=== PATIENT | female | born 1985 | race African-American/Black ===

== ENCOUNTER 2018-09-19 15:17 | Emergency (ER) | payer SELFPAY ==
[~2018-09-19] VITALS: Ht 185.4 cm; Wt 113.6 kg
[2018-09-19 15:17] VITALS: BP 124/65
[2018-09-19 16:06] LABS: URINE PREG TEST NEGATIVE (NEGATIVE)
[2018-09-19] MEDS ORDERED: PYRI1TAB5 PO (16:22)
[2018-09-19] MEDS ORDERED: CIPR-249 PO (16:22)
== END 2018-09-19 16:38 | disposition home or self-care (01) ==
LOC: M ED 15:17
DX: N30.90 Cystitis, unspecified without hematuria (principal); F17.210 Nicotine dependence, cigarettes, uncomplicated

== ENCOUNTER 2020-02-05 10:21 | Emergency (ER) | payer OTHER, SELFPAY ==
[~2020-02-05] VITALS: Ht 185.4 cm; Wt 153.2 kg
[~2020-02-05 10:21] MED LIST: CIPR-249 PO; PYRI1TAB5 PO
[2020-02-05 11:10] LABS: HEMATOCRIT 34.9 % (36.0-47.0); HEMOGLOBIN 12.3 g/dl (12.0-15.5); MEAN CORPUSCULAR HEMOGLOBIN 30.8 pg (27.0-33.0); MEAN CORPUSCULAR HGB CONC 35.2 g/dl (32.0-36.5); MEAN CORPUSCULAR VOLUME 87.3 fl (80.0-96.0); PLATELET COUNT, AUTOMATED 179 10^3/uL (150-450)
[2020-02-05 11:30] LABS: ERYTHROCYTE SEDIMENTATION RATE 35 mm/hr (0-20)
[2020-02-05 11:49] LABS: BLOOD UREA NITROGEN 8 MG/DL (7-18); CALCIUM LEVEL 8.9 MG/DL (8.5-10.1); CARBON DIOXIDE LEVEL 28 MEQ/L (21-32); CHLORIDE LEVEL 105 MEQ/L (98-107); CREATININE FOR GFR 0.75 MG/DL (0.55-1.30); GLOMERULAR FILTRATION RATE > 60.0 (>60); GLUCOSE, FASTING 92 MG/DL (70-100); HCG, SERUM QUANTITATIVE 84027 MIU/ML; POTASSIUM SERUM 3.6 MEQ/L (3.5-5.1); SODIUM LEVEL 137 MEQ/L (136-145)
--- NOTE | 2020-02-05 12:13 | REPVR ---
PROCEDURE INFORMATION: Exam: US Duplex Left Lower Extremity Veins, Limited Exam date and time: 02/05/2020 11:48 AM Age: 34 years old Clinical indication: Pain; Leg, lower; Left; Additional info: Swelling, pain TECHNIQUE: Imaging protocol: Real-time Duplex ultrasound of the Left Lower Extremity with 2-D lal scale, color Doppler flow and spectral waveform analysis with image documentation. Limited exam focused on the left lower extremity veins. COMPARISON: No relevant prior studies available. FINDINGS: Left deep veins: The common femoral, femoral, and popliteal veins are patent without thrombus. Normal compressibility and/or augmentation response. Left superficial veins: The saphenofemoral junction is patent without thrombus. Soft tissues: Unremarkable. IMPRESSION: No evidence of deep vein thrombosis in the visualized lower extremity. Electronically signed by: Fermin Barba On 02/05/2020 12:13:36 PM
[2020-02-05 13:43] VITALS: BP 133/76
== END 2020-02-05 13:44 | disposition home or self-care (01) ==
LOC: M ED 10:21
DX: O22.01 Varicose veins of lower extremity in pregnancy, first trimester (principal); Z3A.10 10 weeks gestation of pregnancy; Z86.79 Personal history of other diseases of the circulatory system

== ENCOUNTER 2020-08-27 14:20 | Inpatient (IN) | payer OTHER ==
[~2020-08-27] VITALS: Ht 188 cm; Wt 167.1 kg
[2020-08-27] MEDS ORDERED: MORPHINE 2 MG/ML 1ML VIAL (J2270) IV ONE (15:00)
[2020-08-27] MEDS ORDERED: NS 1,000 ML IV ONE (15:00)
[2020-08-27 15:24] LABS: BASO % 0.2 % (0.0-1.0); HEMATOCRIT 23.3 % (36.0-47.0); HEMOGLOBIN 7.9 g/dl (12.0-15.5); LYMPH % 8.6 % (24.0-44.0); MEAN CORPUSCULAR HEMOGLOBIN 29.2 pg (27.0-33.0); MEAN CORPUSCULAR HGB CONC 33.9 g/dl (32.0-36.5); MONO # 0.5 10^3/uL (0.0-0.8); MONO % 4.7 % (0.0-5.0); NEUTROPHILS # 9.6 10^3/uL (1.5-8.5); NEUTROPHILS % 84.6 % (36.0-66.0); RED BLOOD COUNT 2.71 10^6/uL (4.00-5.40); WHITE BLOOD COUNT 11.3 10^3/uL (4.0-10.0)
[2020-08-27] MEDS: GASTROGRAFIN SOLUTION 30ML PO SCH ×2 (15:52→16:31)
[2020-08-27] MEDS ORDERED: LABETALOL 100MG/20ML VIAL IV STA ×2 (15:55→19:06)
[2020-08-27 16:08] LABS: APPEARANCE, URINE HAZY (CLEAR); BACTERIA, URINE AUTO NEGATIVE (NEGATIVE); BILIRUBIN, URINE AUTO NEGATIVE (NEGATIVE); BLOOD, URINE BLOOD 2+ (NEGATIVE); COLOR, URINE YELLOW (YELLOW); GLUCOSE, URINE (UA) AUTO NEGATIVE (NEGATIVE); KETONE, URINE AUTO NEGATIVE (NEGATIVE); LEUKOCYTE ESTERASE, URINE AUTO 1+ (NEGATIVE); MUCUS, URINE SMALL (NEGATIVE); NITRITE, URINE AUTO NEGATIVE (NEGATIVE); PROTEIN, URINE AUTO 1+ mg/dL (NEGATIVE); RBC, URINE AUTO 14 /HPF (0-3); SPECIFIC GRAVITY URINE AUTO 1.011 (1.002-1.035); SQUAMOUS EPITHELIAL CELL UR AU 0 /HPF (0-6); UROBILINOGEN, URINE AUTO 0.2 mg/dL (0.0-2.0); WBC, URINE AUTO 23 /HPF (0-3)
[2020-08-27 16:09] LABS: ALBUMIN 1.8 GM/DL (3.2-5.2); BILIRUBIN,DIRECT 0.5 MG/DL (0.0-0.2); BILIRUBIN,TOTAL 0.9 MG/DL (0.2-1.0); CREATININE FOR GFR 1.41 MG/DL (0.55-1.30); GLOMERULAR FILTRATION RATE 45.7 (>60); POTASSIUM SERUM 4.3 MEQ/L (3.5-5.1); TOTAL PROTEIN 6.1 GM/DL (6.4-8.2)
[2020-08-27 16:20] LABS: PLATELET COUNT, AUTOMATED 86 10^3/uL (150-450)
[2020-08-27 16:30] VITALS: BP 191/89
[2020-08-27 16:47] LABS: CHLAMYDIA DNA AMPLIFICATION NEGATIVE (NEGATIVE); GC DNA AMPLIFICATION NEGATIVE (NEGATIVE)
[2020-08-27] MEDS ORDERED: ISOVUE-370 76% 100ML VIAL As Ordered ONE (16:55)
[2020-08-27] MEDS ORDERED: ACETAMINOPHEN TAB 650MG DOSE (2X325MG) PO ONE (18:15)
--- NOTE | 2020-08-27 18:45 | REPVR ---
PROCEDURE INFORMATION: Exam: CT Abdomen And Pelvis With Contrast Exam date and time: 08/27/2020 2:56 PM Age: 35 years old Clinical indication: Abdominal pain and other: Back; Additional info: day 12 abd and back pain TECHNIQUE: Imaging protocol: Computed tomography of the abdomen and pelvis with intravenous contrast. Radiation optimization: All CT scans at this facility use at least one of these dose optimization techniques: automated exposure control; mA and/or kV adjustment per patient size (includes targeted exams where dose is matched to clinical indication); or iterative reconstruction. Contrast material: ISOVUE 370; Contrast volume: 100 ml; Contrast route: INTRAVENOUS (IV); COMPARISON: No relevant prior studies available. FINDINGS: Lungs: No suspicious mass or airspace process in the visualized lung bases. Liver: Liver is diffusely enlarged. Gallbladder and bile ducts: Gallbladder is present and shows no evidence of gallstone. Pancreas: Pancreas appears normal. No focal mass or peripancreatic inflammation. Spleen: Spleen is diffusely enlarged, without focal lesion. Adrenal glands: Adrenal glands are normal in appearance. Kidneys and ureters: Kidneys appear normal, with no stone, solid mass or hydronephrosis. Stomach and bowel: No evidence of small bowel obstruction. No evidence of acute diverticulitis. Appendix: Normal caliber appendix is identified, with no adjacent inflammation. Intraperitoneal space: No pneumoperitoneum. Vasculature: No aortic aneurysm. Main portal and splenic veins enhance normally. Lymph nodes: No enlarged lymph nodes. Urinary bladder: Urinary bladder appears normal. Reproductive: Uterus is prominent in size consistent with state. Bones/joints: Surgical hardware in the proximal left humerus. No concerning osseous abnormality. Soft tissues: Unremarkable. IMPRESSION: 1. Hepatosplenomegaly. 2. No acute abdominal or pelvic process to correlate with clinical symptoms. No evidence of obstructive uropathy Electronically signed by: Carson Medel On 08/27/2020 18:45:37 PM
[2020-08-27] MEDS ORDERED: AMPICILLIN SOD/SULBACTAM SOD 3 GM in D5W MINI-BAG PLUS 100 ML IV ONE (19:30)
[2020-08-27] MEDS ORDERED: ACET-897 PO (20:07)
[2020-08-27] MEDS ORDERED: PREN1CHW PO (20:07)
[2020-08-27] MEDS ORDERED: IBUP-1764 PO (20:07)
[2020-08-27] MEDS ORDERED: ZOSYN 3.375GM VIAL (J2543) As Ordered ONE (20:28)
[2020-08-27] MEDS ORDERED: PIPERACILLIN/TAZOBACTAM SOD 3.375 GM in D5W MINI-BAG PLUS 50 ML IV ONE (20:45)
--- NOTE | 2020-08-27 20:48 | HPEPDOC ---
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 She has had intermittent fevers. She has a foul smelling vaginal discharge. Bleeding is minimal. She admits to leaking fluid for at least 3 days prior to going in to labor. She had fevers as high as 102-103 F in the two days before labor started. PAST MEDICAL HISTORY: non-contributory PAST SURGICAL HISTORY: none SOCIAL HISTORY: Marital status: . Resides in: [place] Children: 1 Employment: Tobacco use:no ETOH: Illicit drug use: Tattoos done unprofessionally: . IV drug use: Other relevant social factors: FAMILY HISTORY: non-contributory ALLERGIES: Please see below. REVIEW OF SYSTEMS: CONSTITUTIONAL: feels lethargic abdominal pain and back pain as mentioned. All other systems normal. HOME MEDICATIONS: Please see below. PHYSICAL EXAMINATION: VITAL SIGNS: Temperature , pulse , respiratory rate , blood pressure , pulse oximetry % on room air. GENERAL APPEARANCE: appears lethargic. HEENT: WNL.. CARDIOVASCULAR: RRR, tachycardic. LUNGS: CTA. ABDOMEN: soft, NABS, mild tenderness fundus. MUSCULOSKELETAL: no CVA tenderness. EXTREMITIES: NT. NEUROLOGICAL: CN's II-XII intact.. LABORATORY DATA: See below. IMAGING: CT scan: normal post uterus, normal renal system MICROBIOLOGY: Please see below. ASSESSMENT: 35 yo PPD#12 s/p with post endometritis, and preeclampsia. . PLAN: 1. Admit for IV antibiotics (plan Zosyn) 2. Treat elevated BP's as needed (received IV Labetalol in ER) 3. Observe on quality assurance monitor chassis 4. blood cultures pending 5. follow chemistries for improvement in renal status 6. Do not plan to start Magnesium sulfate at this time. Vital Signs Vital Signs Date Time Temp Pulse Resp B/P (MAP) Pulse Ox O2 Delivery O2 Flow Rate FiO2 08/27/20 19:20 132 99 08/27/20 19:10 20 Room Air 08/27/20 17:58 141/85 (103) 08/27/20 16:30 98.6 Laboratory Data Labs 24H Laboratory Tests 2 08/27/20 15:02: Immature Granulocyte % (Auto) 1.9, Neutrophils (%) (Auto) 84.6H, Lymphocytes (%) (Auto) 8.6L, Monocytes (%) (Auto) 4.7, Eosinophils (%) (Auto) 0.0, Basophils (%) (Auto) 0.2, Neutrophils # (Auto) 9.6H, Lymphocytes # (Auto) 1.0L, Monocytes # (A uto) 0.5, Eosinophils # (Auto) 0.0, Basophils # (Auto) 0.0, Nucleated Red Blood Cells % (auto) 0.2H, Immature Platelet Fraction 10.5H, Anion Gap 6L, Glomerular Filtration Rate 45.7L, Lactic Acid Level 1.8, Calcium Level 8.0L, Total Bilirubin 0.9, Direct Bilirubin 0.5H, Aspartate Amino Transf (AST/SGOT) 25, Alanine Aminotransferase (ALT/SGPT) 30, Alkaline Phosphatase 249H, Total Protein 6.1L, Albumin 1.8L, Albumin/Globulin Ratio 0.4L, Lipase 48L 08/27/20 15:03: Urine Color YELLOW, Urine Appearance HAZY, Urine pH 6.0, Urine Specific [place] 1.011, Urine Protein 1+H, Urine Glucose (Auto)(UA) NEGATIVE, Urine Ketones (Auto) NEGATIVE, Urine Blood 2+H, Urine Nitrite NEGATIVE, Urine Bilirubin NEGATIVE, Urine Urobilinogen 0.2, Urine Leukocyte Esterase (Auto) 1+H, Urine WBC (Auto) 23H, Urine RBC (Auto) 14H, Urine Hyaline Casts (Auto) 0, Urine Bacteria (Auto) NEGATIVE, Urine Squamous Epithelial Cells 0, Urine Mucus (Auto) SMALL, Urine Sperm (Auto) , Chlamydia trachomatis DNA (PATSY) NEGATIVE, Neisseria gonorrhoeae DNA (PATSY) NEGATIVE CBC/BMP Laboratory Tests 08/27/20 15:02 Microbiology Microbiology 08/27/20 Urine Culture, Received Pending 08/27/20 Wet Prep - Final, Complete 08/27/20 Blood Culture, Received Pending 08/27/20 Blood Culture, Received Pending Home Medications Scheduled Comb No.42/Folic Acid (Prena1 Chew Tablet) 1.4 Mg Tab.ch.bph, 1 CHW PO DAILY Scheduled PRN Acetaminophen (Tylenol Extra Strength) 500 Mg Tablet, 1,000 MG PO Q6H PRN for PAIN Ibuprofen (Ibuprofen) 200 Mg Tablet, 800 MG PO Q6H PRN for PAIN Allergies Coded Allergies: No Known Allergies (Unverified , 09/19/18) A-FIB/CHADSVASC A-FIB History Current/History of A-Fib/PAF?: No Current PO Anticoag Therapy: No Age/Risk Factor Scoring CHADSVASC: CHADSVASC Response (Comments) Value Age Risk Factor Age < 65 years old 0 Gender Risk Factor Female 1 Hx of CHF No 0 Hx of HTN Yes 1 Hx of Stroke/TIA/or VTE No 0 Hx of Diabetes No 0 Hx of Vascular Disease No 0 Total 2 Treatment Treatment ordered: NONE JOSE ALEJANDRO DIALLO MD Aug 27, 2020 20:06
[2020-08-27 22:04] LABS: RSV AMPLIFICATION NEGATIVE (NEGATIVE)
[2020-08-27] MEDS ORDERED: ONDANSETRON 4MG/2ML VIAL IV PRN (22:45)
[2020-08-27] MEDS ORDERED: IBUPROFEN 800 MG TAB PO ONE (22:45)
[2020-08-27 23:27] VITALS: BP 105/72
[2020-08-28] VITALS (14 sets, daily range): BP systolic 120–147; BP diastolic 69–91; O2SAT 100
[2020-08-28] MEDS: LR 1,000 ML IV SCH ×3 (00:01→16:12)
[2020-08-28] MEDS: PIPERACILLIN/TAZOBACTAM SOD 3.375 GM in D5W MINI-BAG PLUS 50 ML IV SCH ×4 (02:23→20:37)
[2020-08-28] MEDS: ACETAMINOPHEN 500 MG TAB PO PRN ×2 (06:24→22:54)
[2020-08-28] MEDS: IBUPROFEN 800 MG TAB PO PRN ×2 (09:59→17:33)
[2020-08-28 10:59] LABS: BASO % 0.2 % (0.0-1.0); EOS % 0.1 % (0.0-3.0); HEMOGLOBIN 7.1 g/dl (12.0-15.5); LYMPH # 1.5 10^3/uL (1.5-5.0); LYMPH % 10.8 % (24.0-44.0); MEAN CORPUSCULAR HEMOGLOBIN 29.1 pg (27.0-33.0); MEAN CORPUSCULAR HGB CONC 34.6 g/dl (32.0-36.5); MONO # 1.2 10^3/uL (0.0-0.8); MONO % 8.4 % (0.0-5.0); NEUTROPHILS # 10.8 10^3/uL (1.5-8.5); NEUTROPHILS % 78.8 % (36.0-66.0); RED BLOOD COUNT 2.44 10^6/uL (4.00-5.40); WHITE BLOOD COUNT 13.7 10^3/uL (4.0-10.0)
[2020-08-28 11:00] LABS: HEMATOCRIT 20.5 % (36.0-47.0); PLATELET COUNT, AUTOMATED 97 10^3/uL (150-450)
[2020-08-28 11:27] LABS: ALBUMIN 1.6 GM/DL (3.2-5.2); BILIRUBIN,TOTAL 0.8 MG/DL (0.2-1.0); CALCIUM LEVEL 8.5 MG/DL (8.5-10.1); CREATININE FOR GFR 1.2 MG/DL (0.55-1.30); GLOMERULAR FILTRATION RATE 55.1 (>60); POTASSIUM SERUM 4.3 MEQ/L (3.5-5.1); TOTAL PROTEIN 6.5 GM/DL (6.4-8.2)
--- NOTE | 2020-08-28 13:08 | REP ---
INDICATION: +right homans, lower ext to level of thigh COMPARISON: None. TECHNIQUE: Vincent scale and color Doppler evaluation right lower extremity using linear high frequency transducer. FINDINGS: Ultrasound examination of the right lower extremity deep venous structures from the common femoral vein to the popliteal vein demonstrates normal compressibility flow and wave patterns in response to respiration and augmentation. There is no evidence for deep venous thrombosis. IMPRESSION: No evidence for deep venous thrombosis. <Electronically signed by Aleks Bautista > 08/28/20 0068
[2020-08-28 14:19] LABS: INR 1.21; PROTHROMBIN TIME 15.6 SECONDS (12.5-14.3)
[2020-08-28 14:20] LABS: PARTIAL THROMBOPLASTIN TIME 36.2 SECONDS (24.2-38.5)
[2020-08-29] VITALS (14 sets, daily range): BP systolic 117–160; BP diastolic 68–113; O2SAT 97–99
[2020-08-29] MEDS: LR 1,000 ML IV SCH ×4 (00:23→23:11)
[2020-08-29] MEDS: PIPERACILLIN/TAZOBACTAM SOD 3.375 GM in D5W MINI-BAG PLUS 50 ML IV SCH ×2 (02:04→08:18)
[2020-08-29] MEDS: IBUPROFEN 800 MG TAB PO PRN ×2 (02:05→15:26)
[2020-08-29] MEDS: ACETAMINOPHEN 500 MG TAB PO PRN (05:40)
[2020-08-29 06:42] LABS: ALBUMIN 1.5 GM/DL (3.2-5.2); BILIRUBIN,TOTAL 0.7 MG/DL (0.2-1.0); CALCIUM LEVEL 7.8 MG/DL (8.5-10.1); CREATININE FOR GFR 1.16 MG/DL (0.55-1.30); GLOMERULAR FILTRATION RATE 57.3 (>60); POTASSIUM SERUM 4.5 MEQ/L (3.5-5.1)
--- NOTE | 2020-08-29 07:08 | IPNPDOC ---
Progress Note Date of Service: Aug 29, 2020 Progress Note Progress note, hospital day #3 HPI: Patient is a 35-year-old G1, P1. She delivered via on 08/15/2020 (unattended home , but did collaborate with FILIBERTO). Her course has been complicated by endometritis. She was admitted on 08/27 for IV antibiotic and IV hydration. Yesterday, a right lower extremity DVT was ruled out with Doppler studies. This was done because she was complaining of significant right lower extremity pain and back pain. . She also agreed to a blood transfusion given her significant anemia. She received 3 units packed red blood cells. Today, she is feeling much improved. She no longer feels feverish. Her back pain/pelvic pain is still debilitating her; preventing her from getting out of bed. She continues to deny significant lochia/vaginal bleeding. Vitals: Normotensive, normal heart rate and O2 sat, afebrile Abdomen soft, nontender, nondistended. No guarding or rebound tenderness Right lower extremity pain/back pain, no differential swelling/edema compared to the left. Heart regular rate and rhythm. No murmurs, gallops, rubs Lungs clear to auscultation bilaterally. No wheezes, crackles, rales, rhonchi See labs below A/P: endometritis. Clinically improving. -Continue IV Zosyn and transition to by mouth antibiotics tomorrow. -Continue to monitor closely -Continue DVT/PE prophylaxis with Lovenox 40 mg subcutaneous daily -PT consult -Percocet for back pain. Jason Pereira, VS, I&O, 24H, [place] Vital Signs/I&O Vital Signs Date Time Temp Pulse Resp B/P (MAP) Pulse Ox O2 Delivery O2 Flow Rate FiO2 08/29/20 01:50 99.1 105 26 129/89 98 Room Air I&O- Last 24 Hours up to 6 AM 08/29/20 06:00 Intake Total 6370 ml Output Total 2350 ml Balance 4020 ml Laboratory Data 24H LABS Laboratory Tests 2 08/28/20 10:25: Immature Granulocyte % (Auto) 1.7, Neutrophils (%) (Auto) 78.8H, Lymphocytes (%) (Auto) 10.8L, Monocytes (%) (Auto) 8.4H, Eosinophils (%) (Auto) 0.1, Basophils (%) (Auto) 0.2, Neutrophils # (Auto) 10.8H, Lymphocytes # (Auto) 1.5, Monocytes # (Auto) 1.2H, Eosinophils # (Auto) 0.0, Basophils # (Auto) 0.0, Nucleated Red Blood Cells % (auto) 0.3H, Anion Gap 3L, Glomerular Filtration Rate 55.1L, Calcium Level 8.5, Total Bilirubin 0.8, Aspartate Amino Transf (AST/SGOT) 23, Alanine Aminotransferase (ALT/SGPT) 23, Alkaline Phosphatase 211H, Total Protein 6.5, Albumin 1.6L, Albumin/Globulin Ratio 0.3L 08/28/20 13:58: Prothrombin Time 15.6H, Prothromb Time International Ratio 1.21, Activated Partial Thromboplast Time 36.2, Fibrinogen 565H 08/29/20 06:03: Anion Gap 5L, Glomerular Filtration Rate 57.3L, Calcium Level 7.8L, Total Bilirubin 0.7, Aspartate Amino Transf (AST/SGOT) 48H, Alanine Aminotransferase (ALT/SGPT) 33, Alkaline Phosphatase 238H, Total Protein 6.0L, Albumin 1.5L, Albumin/Globulin Ratio 0.3L CBC/BMP Laboratory Tests 08/28/20 10:25 08/29/20 06:03 Microbiology Microbiology 08/27/20 Urine Culture - Final, Complete 08/27/20 Wet Prep - Final, Complete 08/27/20 Blood Culture - Preliminary, Resulted 08/27/20 Blood Culture - Preliminary, Resulted HANNAH PEREIRA DO Aug 29, 2020 07:08
[2020-08-29] MEDS ORDERED: KCL 20MEQ IN D5/NS 1000ML 1,000 ML IV SCH (08:41)
[2020-08-29] MEDS ORDERED: PERCOCET 5MG/325MG TAB PO PRN ×5 (08:45→09:30)
[2020-08-29] MEDS ORDERED: KETOROLAC 30 MG/ML 1ML VIAL IV SCH (08:45)
[2020-08-29] MEDS ORDERED: BISACODYL 10 MG SUPP PR PRN (08:45)
[2020-08-29] MEDS ORDERED: NORCO, ANEXSIA 5/325MG TABLET (HYDROcodone/ACETAMINOPHEN) PO PRN (08:45)
[2020-08-29] MEDS ORDERED: LEVALBUTEROL 1.25 MG/0.5 ML CONCENTRATE NEB NEB PRN (08:45)
[2020-08-29] MEDS ORDERED: MOM 30ML SUSPENSION UDC PO SCH (09:00)
[2020-08-29] MEDS ORDERED: DOCUSATE SODIUM 100MG CAPSULE PO SCH (09:00)
[2020-08-29] MEDS ORDERED: PANTOPRAZOLE 40MG TAB (PROTONIX) PO SCH (09:00)
[2020-08-29] MEDS: PERCOCET 5MG/325MG TAB PO PRN ×3 (09:57→19:49)
[2020-08-29 10:18] LABS: HEMATOCRIT 26.8 % (36.0-47.0); HEMOGLOBIN 9.2 g/dl (12.0-15.5); MEAN CORPUSCULAR HEMOGLOBIN 29.1 pg (27.0-33.0); MEAN CORPUSCULAR HEMOGLOBIN 29.2 pg (27.0-33.0); MEAN CORPUSCULAR HGB CONC 34.3 g/dl (32.0-36.5); MEAN CORPUSCULAR HGB CONC 34.6 g/dl (32.0-36.5); MEAN CORPUSCULAR VOLUME 84.1 fl (80.0-96.0); MEAN CORPUSCULAR VOLUME 85.1 fl (80.0-96.0); PLATELET COUNT, AUTOMATED 120 10^3/uL (150-450); PLATELET COUNT, AUTOMATED 125 10^3/uL (150-450); RED BLOOD COUNT 3.09 10^6/uL (4.00-5.40); RED BLOOD COUNT 3.15 10^6/uL (4.00-5.40); WHITE BLOOD COUNT 13.7 10^3/uL (4.0-10.0); WHITE BLOOD COUNT 14.5 10^3/uL (4.0-10.0)
[2020-08-29 10:27] LABS: INR 1.16; PROTHROMBIN TIME 15.1 SECONDS (12.5-14.3)
[2020-08-29 10:28] LABS: PARTIAL THROMBOPLASTIN TIME 33.2 SECONDS (24.2-38.5)
[2020-08-29] MEDS: ENOXAPARIN 40MG/0.4ML SYRINGE (J1650 PER 10MG) SC SCH (10:30)
[2020-08-29 10:47] LABS: ANISOCYTOSIS 1+; ATYPICAL LYMPH 5 % (0-5); BASOPHILS 1 % (0-1); EOSINOPHILS 1 % (0-3); LYMPHOCYTES 8 % (16-44); MONOCYTES 3 % (0-5); NEUTROPHILS 82 % (28-66); PLATELET ESTIMATE DECREASED (NORMAL); POIKILOCYTOSIS 1+; POLYCHROMASIA 1+
[2020-08-29] MEDS: CYCLOBENZAPRINE 5MG TABLET PO PRN (13:16)
[2020-08-29] MEDS: PRENATAL VITAMINS CHEWABLE TABLET PO SCH (13:16)
[2020-08-29] MEDS ORDERED: ceFAZolin SOD 2 GM in IV 1 EA IV SCH (14:00)
[2020-08-29] MEDS ORDERED: LEVALBUTEROL 1.25 MG/0.5 ML CONCENTRATE NEB NEB SCH (14:00)
--- NOTE | 2020-08-29 17:34 | IPNPDOC ---
Subjective Date Seen The patient was seen on 08/29/20. Subjective Chief Complaint/HPI 35 yo PPD#14 s/p at home presents with persistent fevers, along with severe lower back pain and abdominal pain. Her low back pain is still severe, and unchanged. She gets minimal relief with narcotics. She can not currently stand up due to back pain. Constitutional: Reports: Chills, Fever, Malaise, Night Sweats, Weakness, Fatigue, Weight Loss, Lethargy, Other Musculoskeletal: Reports: Neck Pain, Back Pain, Shoulder Pain, Arm Pain, Hand Pain, Leg Pain, Foot Pain, Joint Pain, Muscle Pain, Spasms, Other Symptoms Objective Physical Examination General Exam: Positive: Alert, Cooperative ENT Exam: Positive: Atraumatic Neck Exam: Positive: Supple Chest Exam: Positive: Clear to auscultation Heart Exam: Positive: Tachycardic Telemetry: Positive: No significant arrhythmia Abdomen Exam: Positive: Normal bowel sounds, BS Hyperactive, BS Hypoactive, Soft, Tenderness, Hepatospenomegaly, Mass, Hernia, Other (equisite tenderness lower back at level of sacrum in midline) Female Exam: Positive: Nl Ext Genitalia, Discharge (purulent discharge), Odor Extremity Exam: Positive: Edema, Normal pulses Assessment /Plan Assessment 35 PPD #14 with endometritis complicated by fevers, bacteremia; back pain of uncertain etiology Plan to consult Hospitalist, as well as infectious disease for assistance with antibiotic regimen Pt moved to ICU for better monitoring. Plan pelvic ultrasound to check for abscess as cause of back pain CT scan reviewed thoroughly Plan/VTE VTE Prophylaxis Ordered?: Yes VS, I&O, 24H, [place] Vital Signs/I&O Vital Signs Date Time Temp Pulse Resp B/P (MAP) Pulse Ox O2 Delivery O2 Flow Rate FiO2 08/29/20 15:57 24 08/29/20 15:56 102.9 08/29/20 15:27 95 Room Air 08/29/20 15:15 150 160/113 (129) I&O- Last 24 Hours up to 6 AM 08/29/20 05:59 Intake Total 7605 ml Output Total 2350 ml Balance 5255 ml Laboratory Data 24H LABS Laboratory Tests 2 08/29/20 06:03: Anion Gap 5L, Glomerular Filtration Rate 57.3L, Calcium Level 7.8L, Total Bilirubin 0.7, Aspartate Amino Transf (AST/SGOT) 48H, Alanine Aminotransferase (ALT/SGPT) 33, Alkaline Phosphatase 238H, Total Protein 6.0L, Albumin 1.5L, Albumin/Globulin Ratio 0.3L 08/29/20 09:51: 08/29/20 09:56: Neutrophils (%) (Auto) , Nucleated Red Blood Cells % (auto) 0.3H, Neutrophils 82H, Lymphocytes (Manual) 8L, Monocytes (Manual) 3, Eosinophils (Manual) 1, Basophils (Manual) 1, Atypical Lymphocytes 5, Polychromasia 1+, Poikilocytosis 1+, Anisocytosis 1+, Macrocytosis 1+, Schistocytes , Platelet Estimate DECREASED, Prothrombin Time 15.1H, Prothromb Time International Ratio 1.16, Activated Partial Thromboplast Time 33.2, Fibrinogen 522H CBC/BMP Laboratory Tests 08/29/20 06:03 08/29/20 09:56 Microbiology Microbiology 08/27/20 Urine Culture - Final, Complete 08/27/20 Wet Prep - Final, Complete 08/27/20 Blood Culture - Preliminary, Resulted Strep Agalactiae Group B 08/27/20 Blood Culture - Preliminary, Resulted Strep Agalactiae Group B JOSE ALEJANDRO DIALLO MD Aug 29, 2020 17:34
[2020-08-29] MEDS ORDERED: AMPICILLIN SOD/SULBACTAM SOD 3 GM in D5W MINI-BAG PLUS 100 ML IV SCH (18:00)
--- NOTE | 2020-08-29 18:12 | CR.PDOC ---
General Date of Consultation: Aug 29, 2020 Consultation REASON FOR CONSULTATION/CHIEF COMPLAINT: sepsis/ post endometritis HISTORY OF PRESENT ILLNESS: 35F presented to hospital 08/27/20, 12 days post- for worsening fatigue, malaise and lower back pain. She had a spontaneous vaginal delivery at home, unclear as to the level of assistance she had with her delivery. She had no care. She does not follow with any physicians. Denies shortness of breath, chest pain, headaches, changes in vision, numbness/tingling, or any bladder/bowel issues. Denies saddle parasthesia. ALLERGIES: Please see below. HOME MEDICATIONS: Please see below. PAST MEDICAL HISTORY: morbid obesity REVIEW OF SYSTEMS: Negative except as per HPI. PHYSICAL EXAMINATION: VITAL SIGNS: Please see below. General: NAD, anxious HEENT: NC/AT, EOMI Lungs: CTA B/L Heart: +S1S2, tachy, no murmur/rubs/gallop Abd: morbidly obese, soft, NT, +BS Ext: peripheral edema LABORATORY DATA: Please see below. ASSESSMENT/PLAN: 35 F presents for worsening fatigue, malaise, fevers after having un-assisted spontaneous vaginal delivery at home. Admitted for post- endometritis/sepsis. Started on broad-spectrum anti-microbial coverage, however fevers persisted, with tachycardia and hypotension. Blood cultures 2 of 2 returned postiive for GBS. #sepsis/post- endometritis - d/w ID - assistance appreciated - consultation pending - started Unasyn - repeat blood cultures pending - check pelvic US/doppler - MRSA screen, ESR/CRP, lactic acid #back pain - further work up pending - no alarm symptoms #morbid obesity - complicates care #DVT prophylaxis Vital Signs/I&O Vital Signs Date Time Temp Pulse Resp B/P (MAP) Pulse Ox O2 Delivery O2 Flow Rate FiO2 08/29/20 17:11 102.6 122 30 125/68 (87) 97 Room Air I&O- Last 24 Hours up to 6 AM 08/29/20 06:00 Intake Total 6630 ml Output Total 2875 ml Balance 3755 ml Laboratory Data Labs 24H Laboratory Tests 2 08/29/20 06:03: Anion Gap 5L, Glomerular Filtration Rate 57.3L, Calcium Level 7.8L, Total Bilirubin 0.7, Aspartate Amino Transf (AST/SGOT) 48H, Alanine Aminotransferase (ALT/SGPT) 33, Alkaline Phosphatase 238H, Total Protein 6.0L, Albumin 1.5L, Al bumin/Globulin Ratio 0.3L 08/29/20 09:51: 08/29/20 09:56: Neutrophils (%) (Auto) , Nucleated Red Blood Cells % (auto) 0.3H, Neutrophils 82H, Lymphocytes (Manual) 8L, Monocytes (Manual) 3, Eosinophils (Manual) 1, Basophils (Manual) 1, Atypical Lymphocytes 5, Polychromasia 1+, Poikilocytosis 1+, Anisocytosis 1+, Macrocytosis 1+, Schistocytes , Platelet Estimate DECREASED, Prothrombin Time 15.1H, Prothromb Time International Ratio 1.16, Activated Partial Thromboplast Time 33.2, Fibrinogen 522H CBC/BMP Laboratory Tests 08/29/20 06:03 08/29/20 09:56 Microbiology Microbiology 08/27/20 Urine Culture - Final, Complete 08/27/20 Wet Prep - Final, Complete 08/27/20 Blood Culture - Preliminary, Resulted Strep Agalactiae Group B 08/27/20 Blood Culture - Preliminary, Resulted Strep Agalactiae Group B Allergies Coded Allergies: No Known Allergies (Unverified , 09/19/18) Home Medications Scheduled Comb No.42/Folic Acid (Prena1 Chew Tablet) 1.4 Mg Tab.ch.bph, 1 CHW PO DAILY, (Reported) Scheduled PRN Acetaminophen (Tylenol Extra Strength) 500 Mg Tablet, 1,000 MG PO Q6H PRN for PAIN, (Reported) Ibuprofen (Ibuprofen) 200 Mg Tablet, 800 MG PO Q6H PRN for PAIN, (Reported) JOSE ALEJANDRO VILLALTA MD Aug 29, 2020 18:11
[2020-08-29 19:04] LABS: BASO % 0.3 % (0.0-1.0); EOS # 0.1 10^3/uL (0.0-0.5); EOS % 0.5 % (0.0-3.0); LYMPH # 1.8 10^3/uL (1.5-5.0); LYMPH % 13.8 % (24.0-44.0); MONO # 0.9 10^3/uL (0.0-0.8); MONO % 6.7 % (0.0-5.0); NEUTROPHILS # 10.3 10^3/uL (1.5-8.5); NEUTROPHILS % 76.8 % (36.0-66.0)
[2020-08-29 19:15] LABS: PLATELET ESTIMATE NORMAL (NORMAL)
--- NOTE | 2020-08-29 19:20 | REPVR ---
PROCEDURE INFORMATION: Exam: US Pelvis Complete, Transabdominal and US Pelvis, Transvaginal and US Duplex Artery and Vein, Ovaries, Complete Exam date and time: 08/29/2020 6:40 PM Age: 35 years old Clinical indication: Pelvic pain; Patient HX: Pp 2 weeks, endometritis, fever; Additional info: Pain, R/O abscess TECHNIQUE: Imaging protocol: Real-time transabdominal and transvaginal pelvic ultrasound (complete) with image documentation. Transvaginal imaging was used for better evaluation of the endometrium, adnexa, and/or cervix. Real-time duplex ultrasound scan of the arterial and venous flow of the ovaries with B-mode, color Doppler flow and spectral waveform analysis. COMPARISON: CT ABD/PEL W/IV ORAL CONTRAS 08/27/2020 5:54 PM FINDINGS: Uterus/cervix: Transabdominally, the uterus measures 8.6 x 4.9 x 8.6 cm. Complex Fluid is noted within the endometrial canal. The combined endometrial surfaces measure approximately 7 cm in thickness. Endovaginally, a trace amount of fluid is noted within the endocervical canal. The body and fundus of the uterus are not well seen on the transvaginal portion of the examination. Right adnexa: Right ovary measures 5.4 x 1.8 x 2.4 cm. Arterial and venous Doppler demonstrated in the right ovary on color Doppler and pulse Doppler examination. Endovaginally, right ovary measures 5.2 x 1.4 x 1.5 cm. Subcentimeter follicles are present. Left adnexa: Transabdominally, the left ovary measures 3.9 x 2.4 by 2.7 cm. Arterial and venous blood flow demonstrated in the left ovary on color Doppler and pulse Doppler examination. Endovaginally, left ovary not seen as a separate structure. Intraperitoneal space: Trace amount of free fluid noted adjacent to the right ovary. Urinary bladder: Transabdominally, the bladder is poorly distended which limits visualization of the uterus and the adnexa. Ramirez catheter present within the bladder. IMPRESSION: 1. Trace amount of complex fluid noted within the endometrial canal in this patient with a history of endometritis. 2. No evidence of ovarian torsion. No evidence of tubo-ovarian abscess. Electronically signed by: Kami Philip On 08/29/2020 19:20:57 PM
[2020-08-29 19:45] LABS: ERYTHROCYTE SEDIMENTATION RATE 89 mm/hr (0-20)
[2020-08-29] MEDS: DOCUSATE SODIUM 100MG CAPSULE PO SCH (21:00)
[2020-08-29] MEDS ORDERED: MOM 30ML SUSPENSION UDC PO PRN (23:30)
[2020-08-29] MEDS ORDERED: MAALOX 30 ML SUSP *UDC PO PRN (23:30)
[2020-08-29] MEDS ORDERED: ACETAMINOPHEN TAB 650MG DOSE (2X325MG) PO PRN (23:30)
[2020-08-30] VITALS (15 sets, daily range): BP systolic 111–156; BP diastolic 74–104
[2020-08-30] MEDS: PERCOCET 5MG/325MG TAB PO PRN ×5 (00:23→23:15)
[2020-08-30] MEDS: IBUPROFEN 800 MG TAB PO PRN ×3 (03:04→18:21)
[2020-08-30] MEDS: GENTAMICIN IV SCH (03:44)
[2020-08-30] MEDS: CYCLOBENZAPRINE 5MG TABLET PO PRN ×2 (03:44→20:29)
[2020-08-30] MEDS: D5W IV SCH (03:44)
[2020-08-30 06:22] LABS: HEMATOCRIT 26.8 % (36.0-47.0); MEAN CORPUSCULAR HEMOGLOBIN 28.8 pg (27.0-33.0); MEAN CORPUSCULAR HGB CONC 33.6 g/dl (32.0-36.5); MEAN CORPUSCULAR VOLUME 85.6 fl (80.0-96.0); PLATELET COUNT, AUTOMATED 154 10^3/uL (150-450); RED BLOOD COUNT 3.13 10^6/uL (4.00-5.40); WHITE BLOOD COUNT 13.5 10^3/uL (4.0-10.0)
[2020-08-30] MEDS: LR 1,000 ML IV SCH (06:24)
[2020-08-30 06:32] LABS: ATYPICAL LYMPH 2 % (0-5); EOSINOPHILS 2 % (0-3); LYMPHOCYTES 14 % (16-44); MONOCYTES 4 % (0-5); NEUTROPHILS 78 % (28-66)
[2020-08-30 06:33] LABS: ANISOCYTOSIS 1+; PLATELET ESTIMATE NORMAL (NORMAL); POIKILOCYTOSIS 1+; POLYCHROMASIA 1+
[2020-08-30 06:47] LABS: ALBUMIN 1.5 GM/DL (3.2-5.2); ALT/SGPT 37 U/L (12-78); BILIRUBIN,TOTAL 0.7 MG/DL (0.2-1.0); BLOOD UREA NITROGEN 18 MG/DL (7-18); CALCIUM LEVEL 7.7 MG/DL (8.5-10.1); CARBON DIOXIDE LEVEL 23 MEQ/L (21-32); CHLORIDE LEVEL 110 MEQ/L (98-107); CREATININE FOR GFR 1.02 MG/DL (0.55-1.30); GLOMERULAR FILTRATION RATE > 60.0 (>60); GLUCOSE, FASTING 108 MG/DL (70-100); POTASSIUM SERUM 4.5 MEQ/L (3.5-5.1); SODIUM LEVEL 138 MEQ/L (136-145); TOTAL PROTEIN 6.1 GM/DL (6.4-8.2)
[2020-08-30] MEDS: DOCUSATE SODIUM 100MG CAPSULE PO SCH ×2 (09:00→20:29)
[2020-08-30] MEDS: PRENATAL VITAMINS CHEWABLE TABLET PO SCH (09:54)
[2020-08-30] MEDS: ENOXAPARIN 40MG/0.4ML SYRINGE (J1650 PER 10MG) SC SCH (09:54)
[2020-08-30] MEDS: CLINDAMYCIN 900 MG in IV 1 EA IV SCH ×5 (09:54→23:20)
--- NOTE | 2020-08-30 12:20 | IPNPDOC ---
Text Note Date of Service The patient was seen on 08/30/20. NOTE Subjective: Patient seen and examined at bedside. Overnight patient spiked fevers - Tmax 102.2. Her anti-microbial coverage was changed - Unasyn discontinued, clinda/genta started. This morning she complains lower back pain. Some point tenderness lumbar para-spinal area. She denies any other medical complaints. Denies numbness/tingling/weakness, denies any bladder/bowel changes, denies saddle paresthesia. Objective: General: NAD, lying in bed HEENT: NC/AT, EOMI Lungs: CTA B/L Heart: +S1S2, RRR Abd: soft, morbidly obese, NT, +BS Ext: peripheral edema ASSESSMENT/PLAN: 35 F presents for worsening fatigue, malaise, fevers after having un-assisted spontaneous vaginal delivery at home. Admitted for post- endometritis/sepsis. Started on broad-spectrum anti-microbial coverage, however fevers persisted, with tachycardia and hypotension. Blood cultures 2 of 2 returned positive for GBS. #sepsis/post- endometritis - still spiking fevers - repeat cultures 1 prelim + G+ cocci pairs/chains/clusters - d/w ID - assistance appreciated - consultation pending - started Unasyn - overnight was adjusted to clinda/gent; d/w solution design engineer - prefer Unasyn and vanco if needed - repeat blood cultures pending - pelvic US/doppler - no acute findings - MRSA screen + - elevated ESR/CRP, lactic acid WNL #back pain - further work up pending - no neurologic deficits #morbid obesity - complicates care #DVT prophylaxis Dispo: pending ID eval, possible further imaging of lumbar spine - physical size may limit ability for MRI if needed VS,Fishbone, I+O VS, Fishbone, I+O Laboratory Tests 08/30/20 05:37 08/30/20 06:00 Vital Signs Date Time Temp Pulse Resp B/P (MAP) Pulse Ox O2 Delivery O2 Flow Rate FiO2 08/30/20 10:26 99.6 109 142/96 (111) 100 Room Air 08/30/20 08:00 18 I&O- Last 24 Hours up to 6 AM 08/30/20 06:00 Intake Total 5215 ml Output Total 3245 ml Balance 1970 ml JOSE ALEJANDRO VILLALTA MD Aug 30, 2020 12:20
--- NOTE | 2020-08-30 16:14 | IPNPDOC ---
Text Note Date of Service The patient was seen on 08/30/20. NOTE Progress note, hospital day #5 S: Mrs. Vogt has continued to have fevers overnight despite being on adequate antibiotics. Antibiotics was switch last night to clindamycin and gentamicin and Unasyn was discontinued. Her pain has also worse. She has declined taking any narcotics and desires to" flush out her system. " She has expressed her desires for a more holistic approach to her care and her baby's care and desires to not introduce breastmilk that she feels is contaminated with narcotics. She desires ibuprofen alternating with Tylenol to help manage her pain. She is also expressed her frustration with her current care she states she no longer notices her pelvic pain because her back and left side pain is distracting. VS: 156/103, 113, 99.3 99%RA Abdomen soft, nontender, nondistended. No guarding or rebound tenderness Heart regular rate and rhythm. No murmurs, gallops, rubs Lungs clear to auscultation bilaterally. No wheezes, crackles, rales, rhonchi Abdomen: soft, nttp A/P: 35yo s/p home vaginal delivery 08/15/2020, c/b antepartum/intrapartum fever. Presumptive endometritis. 2. Bacteriuria/sepsis positive for group B strepcontinue current antibiotic regimen. Dr. Dumont consultation is pending 3. Severely debilitating lower back pain. Discussed management options to include IV narcotics oral narcotics. Patient desires a temporary break from all narcotics and will consider resuming. VS,Mckaybone, I+O VS, Fishbone, I+O Laboratory Tests 08/30/20 05:37 08/30/20 06:00 Vital Signs Date Time Temp Pulse Resp B/P (MAP) Pulse Ox O2 Delivery O2 Flow Rate FiO2 08/30/20 14:19 20 Room Air 08/30/20 13:30 99.8 95 100 08/30/20 12:00 139/84 (102) I&O- Last 24 Hours up to 6 AM 08/30/20 06:00 Intake Total 5215 ml Output Total 3245 ml Balance 1970 ml DAGO MAI MD. Aug 30, 2020 16:14
[2020-08-30 16:52] LABS: HEPATITIS B SURFACE ANTIBODY NEGATIVE (POSITIVE)
[2020-08-30 17:31] LABS: HEPATITIS C VIRUS ABY INDEX 0.5 INDEX (<0.8); HIV 1&2 SCREEN CENTAUR NEGATIVE (NEGATIVE)
[2020-08-30 17:47] LABS: HEPATITIS B SURFACE ANTIGEN POSITIVE (NEGATIVE)
[2020-08-30] MEDS: AMPICILLIN SOD 2 GM in D5W MINI-BAG PLUS 100 ML IV SCH (20:29)
--- NOTE | 2020-08-30 20:53 | CR ---
INFECTIOUS DISEASE CONSULTATION DATE: 08/30/2020 REASON FOR CONSULTATION: endometritis with Group B strep bacteremia and sepsis. 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 She had a prolonged labor for about 48 hours and had a fever during labor. She delivered the baby and she did fine for about a week, but then developed recurrent fevers up to 100 to 103. She complained of pelvic pain and vaginal discharge, minimal bleeding and was admitted with sepsis found to have GBS bacteremia. She has been in the hospital for the past 3 days on broad spectrum antibiotics with IV Zosyn 08/30/2019 she was switched to Clindamycin and Gentamicin. The patient continues to have shaking chills, severe back pain and pelvic pain and diffuse generalized myalgia. She is so tired and achy that she is not even getting out of bed. She denies any nausea or vomiting. She denies any headache, neck stiffness. She has no history of murmurs or cardiac history. PAST MEDICAL HISTORY: 1. Dislocation of her left hip at the age 14 that needed surgical repair told because she grew too fast Height 6"1 2. 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 She is not sure about what kind of tumor, whether it was a pituitary adenoma or prolactinoma. PAST SURGICAL HISTORY: The patient's past surgical history is significant for left hip surgical repair. SOCIAL HISTORY: The patient is . She met her on [employer]. She is a daughter and has liver all over, but just moved to [place] about 2 years ago and they have been trying to have a child for the past year. That was their first child. Her works for [employer]. She denies any tobacco or alcohol use. She is more into natural, passe, holistic medicine and does not like to take narcotics. She wanted a natural at home. ALLERGIES: No known drug allergies. MEDICATIONS: 1. Clindamycin 900 mg IV q. 8 hours. 2. Gentamicin 790 mg IV q. 24 hours. 3. Tylenol p.r.n. 4. Milk of Magnesia p.r.n. 5. Colace 100 mg p.o. twice daily. 6. Cyclobenzaprine 5 mg p.o. q. 6 p.r.n. 7. Percocet 1-2 tablets p.r.n. 8. Ibuprofen 800 mg q. 8 p.r.n. REVIEW OF SYSTEMS: She denies any nausea, vomiting or diarrhea. No headaches. She has diffuse pelvic pain plus some vaginal discharge. No significant bleeding. She has severe back pain and generalized body aches. She is having shaking chills and fever in spite of a cooling blanket. LABORATORY DATA: White count 13.5, hemoglobin 9, hematocrit 26.8, platelets 154, improved from 86 on admission, 77% neutrophils, 14% lymphocytes, 7% monocytes. Sodium 138, potassium 4.5, chloride 110, bicarbonate 23, BUN 18, creatinine 1.02, glucose 108, lactic acid 0.9, calcium 7.7, bilirubin 0.7, AST 45, ALT 37, alkaline phosphatase 230, CRP 18.8. total protein 6.1, albumin 1.5. Random Gentamicin was 4. Urinalysis had 23 white cells, 14 red cells. Chlamydia, gonorrhea were negative. Influenza A, B RSV covid 19was negative. MRSA screen was positive. Blood cultures are positive for Group B strep, resistant to Erythromycin, Tetracycline and sensitive to Clindamycin. Urine culture was negative. Blood cultures on 08/27/2020 two sets were positive for Group B strep. On 08/29, one out of two sets are still positive. IMAGING DATA: Pelvic ultrasound done on 08/29 shows fluid noted in the endometrial canal. The combined endometrial surfaces measure approximately 7 cm in thickness, trace fluid endovaginally noted. The right adnexa measures 5.4 by 1.8 by 2.4 cm. Arterial Doppler demonstrated in the right ovary with no evidence of tubo ovarian abscess or ovarian torsion. The left ovary measures 3.9 by 2.4 by 2.7 and arterial and venous Dopplers demonstrated fluid demonstrated in the left ovary as well. CT abdomen and pelvis showed diffuse hepatosplenomegaly. Pancreas is normal. No acute abdominal or pelvic process to correlate with clinical symptoms. No obstructive uropathy. Soft tissue unremarkable. PHYSICAL EXAMINATION: GENERAL APPEARANCE: She is a sick looking female, having rigors, in moderate discomfort. VITAL SIGNS: Temperature is 101.8, pulse 109, respirations 20, 02 sat 100% on room air. HEART: Normal S1, S2. Tachycardic. No murmurs, rubs or gallops appreciated. LUNGS: Clear. No rales, rhonchi or wheezes. ABDOMEN: Obese, soft, tender in the suprapubic area, pelvic area. BACK: Could not be examined because of the patient's rigors and difficulty moving. EXTREMITIES: Trace edema. No clubbing or cyanosis. No calf tenderness. Joints is able to move both upper and lower extremities but with difficulty due to pain and achiness. Left hip healed scar. NEUROLOGICAL: Alert and oriented x3. Motor strength symmetrical. HEENT: Oropharynx dry mucosa with xerographic tongue, no thrush. NECK: Supple, no jugular venous distention, no bruits, no adenopathy. IMPRESSION: This is a 35-year-old female with a history of endometritis, delivered at home on August 15 with fever, prolonged labor, and prolonged rupture of membrane. The patient is admitted with Group B strep bacteremia and sepsis. The patient has had persistent fever and bacteremia in spite of being on appropriate antibiotics for over 72 hours. This is concerning for either a septic thrombophlebitis, ovarian or a deep pelvic phlebitis versus an abscess that needs drainage. Her severe low back pain makes it concerning for a lumbar diskitis or epidural abscess and therefore that needs imaging. The other possibility is that she has a deep abscess that needs drainage as well. PLAN: 1. Repeat imaging study, MRI abdomen and lumbosacral spine to rule out a possible drainable focus and septic phlebitis 2. Continue with IV Clindamycin 900 mg q. 8 hours. 3. Add Ampicillin 2 grams IV q. 4 hours to cover for enterococcus faecalis. 4. Continue with Gentamicin for gram negatives. In many occasions, endometritis is polymicrobial with anaerobes and Group A strep and gram negatives and therefore broad spectrum coverage. 5. Repeat blood cultures tomorrow, two sets. 6. Echocardiogram will be obtained as well to rule out endocarditis. The case was then discussed with Dr. Ja Rubin. MIGUEL
[2020-08-30] MEDS ORDERED: KETOROLAC 30 MG/ML 1ML VIAL IV PRN (23:45)
[2020-08-31] VITALS (9 sets, daily range): BP systolic 122–159; BP diastolic 64–99
[2020-08-31] MEDS: AMPICILLIN SOD 2 GM in D5W MINI-BAG PLUS 100 ML IV SCH ×5 (00:48→17:02)
[2020-08-31] MEDS: D5W IV SCH (02:57)
[2020-08-31] MEDS: GENTAMICIN IV SCH (02:57)
[2020-08-31] MEDS: IBUPROFEN 800 MG TAB PO PRN ×2 (04:11→11:58)
[2020-08-31] MEDS: PERCOCET 5MG/325MG TAB PO PRN ×4 (04:11→15:43)
[2020-08-31 04:22] LABS: HEMATOCRIT 29.2 % (36.0-47.0); HEMOGLOBIN 9.8 g/dl (12.0-15.5); MEAN CORPUSCULAR HEMOGLOBIN 29.5 pg (27.0-33.0); MEAN CORPUSCULAR HGB CONC 33.6 g/dl (32.0-36.5); PLATELET COUNT, AUTOMATED 182 10^3/uL (150-450); RED BLOOD COUNT 3.32 10^6/uL (4.00-5.40); WHITE BLOOD COUNT 15.5 10^3/uL (4.0-10.0)
[2020-08-31 04:45] LABS: ERYTHROCYTE SEDIMENTATION RATE 84 mm/hr (0-20)
[2020-08-31 05:20] LABS: BLOOD UREA NITROGEN 17 MG/DL (7-18); CALCIUM LEVEL 7.7 MG/DL (8.5-10.1); CARBON DIOXIDE LEVEL 26 MEQ/L (21-32); CHLORIDE LEVEL 106 MEQ/L (98-107); CREATININE FOR GFR 1.07 MG/DL (0.55-1.30); GLOMERULAR FILTRATION RATE > 60.0 (>60); GLUCOSE, FASTING 103 MG/DL (70-100); POTASSIUM SERUM 5.2 MEQ/L (3.5-5.1); SODIUM LEVEL 136 MEQ/L (136-145)
--- NOTE | 2020-08-31 06:32 | IPNPDOC ---
Text Note Date of Service The patient was seen on 08/31/20. NOTE Progress note, hospital day #6 S: Mrs. Vogt has continued to have fevers overnight despite being on adequate antibiotics. Ampicillin was added to clindamycin and gentamicin. She appears to be in better spirits this morning and although she has continuing to have severe pain she states that it's has been more tolerable after resuming Percocet. She also reports a good session with her physical therapy and states she was able to do more of the exercises and felt that her care was more directed to what her needs are. She has now decided that she will supplement her breastmilk with formula for her . She is scheduled for a MRI this morning Heart regular rate and rhythm. No murmurs, gallops, rubs Lungs clear to auscultation bilaterally. No wheezes, crackles, rales, rhonchi Abdomen soft, mild tender, nondistended. No guarding or rebound tenderness A/P: 35yo s/p home vaginal delivery 08/15/2020, c/b antepartum/intrapartum fever. Presumptive endometritis. 2. Bacteriuria/sepsis positive for group B strepcontinue current antibiotic regimen. MRI this morning 3. Severely debilitating lower back pain, with improvement VS,Edmar, I+O VS, Edmar, I+O Laboratory Tests 08/31/20 04:03 Vital Signs Date Time Temp Pulse Resp B/P (MAP) Pulse Ox O2 Delivery O2 Flow Rate FiO2 08/31/20 05:00 102.9 118 99 Room Air 08/31/20 04:41 20 08/31/20 04:00 159/99 (119) I&O- Last 24 Hours up to 6 AM 08/31/20 06:00 Intake Total 2844.75 ml Output Total 3465 ml Balance -620.25 ml DAGO MAI MD. Aug 31, 2020 06:32
[2020-08-31] MEDS: CLINDAMYCIN 900 MG in IV 1 EA IV SCH ×2 (07:48→15:42)
[2020-08-31] MEDS ORDERED: SOD POLYSTYRENE SULFONATE SUSP 15 GM/60 ML UD PO ONE (08:00)
[2020-08-31] MEDS: DOCUSATE SODIUM 100MG CAPSULE PO SCH (08:54)
[2020-08-31] MEDS: PRENATAL VITAMINS CHEWABLE TABLET PO SCH (08:57)
[2020-08-31] MEDS: ENOXAPARIN 40MG/0.4ML SYRINGE (J1650 PER 10MG) SC SCH (08:57)
--- NOTE | 2020-08-31 10:35 | IPNPDOC ---
Text Note Date of Service The patient was seen on 08/31/20. NOTE Subjective: Patient seen and examined at bedside. Overnight patient still spiking fevers - Tmax 102.9. Her anti-microbial coverage was adjusted - Unasyn added. This morning she still complains of lower back pain. She denies any other medical complaints. Denies numbness/tingling/weakness, denies any bladder/bowel changes, denies saddle paresthesia. Objective: General: NAD, lying in bed HEENT: NC/AT, EOMI Lungs: CTA B/L Heart: +S1S2, RRR Abd: soft, morbidly obese, NT, +BS Ext: peripheral edema ASSESSMENT/PLAN: 35 F presents for worsening fatigue, malaise, fevers after having un-assisted spontaneous vaginal delivery at home. Admitted for post- endometritis/sepsis. Started on broad-spectrum anti-microbial coverage, however fevers persisted, with tachycardia and hypotension. Blood cultures 2 of 2 returned positive for GBS. #sepsis/post- endometritis - still spiking fevers - repeat cultures still positive for GBS - ID c/s appreciated - concern for abscess/drainable focus - continuing with Unasyn/clinda/genta - echo pending #back pain - further work up pending - no neurologic deficits - MRI pending #hyperkalemia - no ecg changes noted on telemetry - patient refused kayexalate #morbid obesity - complicates care #medical non-compliance - complicates care #DVT prophylaxis Dispo: pending MRI, echocardiogram; transfer to PCU VS,Edmar, I+O VS, Edmar, I+O Laboratory Tests 08/31/20 04:03 Vital Signs Date Time Temp Pulse Resp B/P (MAP) Pulse Ox O2 Delivery O2 Flow Rate FiO2 08/31/20 10:00 99.1 104 126/83 (97) 99 Room Air 08/31/20 08:19 22 I&O- Last 24 Hours up to 6 AM 08/31/20 05:59 Intake Total 4494.75 ml Output Total 3940 ml Balance 554.75 ml JOSE ALEJANDRO VILLALTA MD Aug 31, 2020 10:35
[2020-08-31] MEDS: MORPHINE 4 MG/ML 1ML VIAL/SYRINGE (J2270) IV PRN ×3 (10:52→17:45)
[2020-08-31 12:29] LABS: GENTAMICIN LEVEL RANDOM 22.6 MCG/ML
[2020-08-31 16:08] LABS: HEMOGLOBIN A 68.8 % (96.4-98.8); HEMOGLOBIN A2 2.7 % (1.8-3.2); HEMOGLOBIN C 28.5 % (0.0); HGB SOLUBILITY Negative (Negative)
[2020-09-01] MEDS ORDERED: D5W IV SCH ×2 (03:00)
[2020-09-01] MEDS ORDERED: GENTAMICIN IV SCH ×2 (03:00)
--- NOTE | 2020-09-01 09:55 | IPN ---
PROGRESS NOTE DATE: 08/31/2020 SUBJECTIVE: Yobani did not have her MRI this morning because at 11:30 she was scheduled to go down for the MRI but she was having shaking chills and severe body aches. She could not go down and stated she was in too much pain. She was rescheduled to go for her MRI at 7:00. She had an echocardiogram done today and the radiology ct technologist was very concerned about the presence of vegetation. We called Cardiology, Dr. Hicks, to read the echo as soon as possible. He called us back stating that there was a large mitral valve vegetation 2 cm with perivalvular abscess. The patient is currently being transferred to [facility]. She also complains of severe pain mostly in the lower back area towards the left side mostly in the left back. It is not tender to touch. She is not able to move her left hip. She has difficulty moving the right side and whenever I move her right hip she has pain in the left side. This is also the side where she had a dislocated hip and has a pin. LABS: White count 15.5, hemoglobin 9.8, hematocrit 29.2, platelets 182. ESR 84. Sodium 136, potassium 5.2, chloride 106, bicarb 26, BUN 17, creatinine 1.07, glucose 103, calcium 7.7, CRP 19.6. Random gentamicin level was 4.2. Serology: Hepatitis B surface antigen was positive. Confirmation is still pending. Hepatitis B surface antibody negative. Hepatitis C antibody negative. HIV negative. MRSA screen was positive. Chlamydia, neisseria and gonorrhea were negative. Influenza A, B, RSV and COVID-19 were negative. Blood cultures on 08/27/2020: Two sets were positive. On 08/29/2020, one out of two sets were positive with group B strep resistant to erythromycin and tetracycline. JAJA to ampicillin is less than 0.25 and to penicillin G is less than 0.06. Blood culture from 08/31/2020 is still pending. IMAGING: Pelvic ultrasound done on 08/29/2020 showed no evidence of septic thrombophlebitis. There is a trace amount of complex fluid in the endometrial canal consistent with endometritis. No evidence of ovarian torsion or tubo-ovarian abscess. CT abdomen and pelvis did not show any evidence of infection but there was hepatosplenomegaly. PHYSICAL EXAMINATION: Heart: Normal S1, S2. Tachycardic with a faint murmur appreciated. Lungs are clear. No wheezes, rales or rhonchi. Abdomen is morbidly obese, soft, nontender. Back: No lumbosacral tenderness. Left pelvic tenderness but not to palpation. Extremities: The patient is not able to move her left hip. When I tried to move her right hip she has limited range of motion and severe pain, especially in the left side. IMPRESSION: 1. 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 The patient has been on ampicillin 2 gm IV every 4 hours since 08/30/2020, Clindamycin 900 mg IV every 8 hours, and gentamicin 790 mg IV every 24 hours since 08/30/2020. Prior to that the patient received three days of IV Zosyn. 2. Endometritis. Received three days of IV Zosyn although CT abdomen and pelvis is not that abnormal and the patient is not having much vaginal discharge. 3. Severe left hip/pelvic pain. I am concerned of a septic joint or an epidural abscess causing this severe pain in her hip area, especially as she has a foreign body in that hip from surgery at the age of 14. 4. Hepatitis B surface antigen positive. Confirmatory tests are pending. The patient has hepatosplenomegaly on CT. 5. MRSA screen positive. PLAN: 1. The patient will be transferred to [facility] for cardiothoracic consultation and possibly valve replacement. We will continue with IV ampicillin and gentamicin. Clindamycin could be discontinued. 2. Case has been discussed with Dr. Sole Stuart, Infectious Disease in [place], as she is being transferred to their care as well for a consultation. The patient will need imaging of her hip and back in [place] to rule out metastatic infection. 3. She will need NAN as well MTDD
--- NOTE | 2020-09-01 11:09 | ECGEPIP ---
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
--- NOTE | 2020-09-03 06:57 | ECHO ---
DATE OF PROCEDURE: 08/31/2020 Age: 35 Gender: Female Height: 74 inches Weight: 368 pounds Body surface area: 2.82 m2 PATIENT LOCATION: Inpatient PCU, Room 3219. REFERRING PHYSICIAN: Faith Dumont M.D. INDICATION: Fever of unknown origin. MEASUREMENTS: 2D Measurements: RV 4.6 cm LV 5.2 cm Septum 1.4 cm Posterior wall 1.4 cm Aortic Root 3.4 cm LA 4.3 cm LVEF 85% Doppler Measurements: AV 1.39 m/s LVOT 0.9 m/s LVOT diameter 2.3 cm MV-E 106, A 139, E/A ratio 0.8 Early mitral deceleration time 121 msec E prime medial 7.4, A prime medial 12, E prime lateral 9.799 Average E/E prime ratio 12.4/PCWP 17.3 mmHg PV 1.0 m/s Pulmonary artery acceleration time 69 msec RVSP 50 mmHg IVC 2.3 cm COMMENTS: Sinus tachycardia without intraventricular conduction disturbance. M-mode and two-dimensional echocardiography was performed with pulse, continuous wave, color flow, and tissue Doppler studies. Moderate left ventricular hypertrophy with hyperkinetic wall motion. Mild-moderately dilated left atrium with grade 1 LV diastolic function and current estimated mean left atrial pressure upper limits of normal. Mildly dilated right heart chambers with normal wall motion and Doppler evidence of at least moderately severe pulmonary hypertension. Mildly dilated inferior vena cava with reduced respiratory collapse in keeping with an elevated central venous pressure/right heart failure. Normal aortic dimensions. Mildly thickened aortic cusps with adequate cusp separation and only very mild insufficiency. Very abnormal mitral valve with vegetations on both the anterior and posterior leaflets. Vegetation on the posterior leaflet measures 1.9 x 2.5 cm and prolapses into the left atrium. There was associated thickening of the posterior leaflet that extends to the mitral annulus. No LV inflow tract obstruction, but at least moderate eccentric insufficiency. Normal appearing tricuspid valve with at least moderate insufficiency. Posterior pericardial effusion measuring 6 mmHg. No evidence of cardiac chamber compression. A preliminary report of this study was relayed to the patients primarily provider, Dr. Serna. In light of her clinical condition and the above test findings, we have recommended she be transferred to a tertiary center with cardiovascular surgical capability to replace her mitral valve. KINZAD
[2020-09-04 09:11] LABS: HEPATITIS A IgG TOTAL Negative (Negative)
== END 2020-08-31 18:00 | disposition short-term general hospital (02) | DRG 776 ==
LOC: M ED 14:20 → M SDC 14:21 → M ED INP 19:30 → M MSPAV 23:27 → M PCU 08-29 16:13
PROVIDERS: ADMIT Specialist; ATTEND Specialist
PROC: 30233N1 Transfusion of Nonautologous Red Blood Cells into Peripheral Vein, Percutaneous Approach (ICD-10-PCS; principal; 2020-08-28)
DX: O85 Puerperal sepsis (principal); O86.12 Endometritis following delivery; E66.01 Morbid (severe) obesity due to excess calories; E87.5 Hyperkalemia; O99.03 Anemia complicating the puerperium; D64.9 Anemia, unspecified; Z91.19 Patient's noncompliance with other medical treatment and regimen; O99.215 Obesity complicating the puerperium; O99.825 Streptococcus B carrier state complicating the puerperium; O99.285 Endocrine, nutritional and metabolic diseases complicating the puerperium

== ENCOUNTER → 2020-10-18 | Outpatient (REF) | payer OTHER ==
[~2020-10-18] MED LIST changes: +ACET-897 PO; +IBUP-1764 PO; +PREN1CHW PO
[2020-10-18 16:47] LABS: INR 2.02; PROTHROMBIN TIME 23.3 SECONDS (12.5-14.3)
== END ==
LOC: M LABDRAWC 16:00
DX: Z79.899 Other long term (current) drug therapy (principal)

== ENCOUNTER → 2020-10-25 | Outpatient (REF) | payer OTHER | LOC: M SFHCCLAY 11:22 | PROVIDERS: ATTEND Physician Assistant | DX: T14.8XXA Other injury of unspecified body region, initial encounter (principal); W18.30XA Fall on same level, unspecified, initial encounter; Y92.009 Unspecified place in unspecified non-institutional (private) residence as the place of occurrence of the external cause ==

== ENCOUNTER → 2020-11-13 | Outpatient (REF) | payer OTHER ==
[2020-11-14 11:42] LABS: BASO % 0.7 % (0.0-1.0); EOS # 0.1 10^3/uL (0.0-0.5); EOS % 2.4 % (0.0-3.0); HEMATOCRIT 37.6 % (36.0-47.0); HEMOGLOBIN 12.3 g/dl (12.0-15.5); LYMPH % 36.6 % (24.0-44.0); MEAN CORPUSCULAR HEMOGLOBIN 27.6 pg (27.0-33.0); MEAN CORPUSCULAR HGB CONC 32.7 g/dl (32.0-36.5); MEAN CORPUSCULAR VOLUME 84.3 fl (80.0-96.0); MONO # 0.3 10^3/uL (0.0-0.8); MONO % 5.7 % (2.0-8.0); NEUTROPHILS % 54.4 % (36.0-66.0); PLATELET COUNT, AUTOMATED 183 10^3/uL (150-450); RED BLOOD COUNT 4.46 10^6/uL (4.00-5.40); WHITE BLOOD COUNT 5.5 10^3/uL (4.0-10.0)
[2020-11-14 12:05] LABS: ALBUMIN 4.2 GM/DL (3.2-5.2); ALT/SGPT 33 U/L (12-78); BILIRUBIN,TOTAL 0.4 MG/DL (0.2-1.0); BLOOD UREA NITROGEN 18 MG/DL (7-18); CARBON DIOXIDE LEVEL 29 MEQ/L (21-32); CHLORIDE LEVEL 105 MEQ/L (98-107); CREATININE FOR GFR 1.09 MG/DL (0.55-1.30); GLOMERULAR FILTRATION RATE > 60.0 (>60); GLUCOSE, FASTING 95 MG/DL (70-100); MAGNESIUM LEVEL 1.9 MG/DL (1.8-2.4); POTASSIUM SERUM 4.9 MEQ/L (3.5-5.1); SODIUM LEVEL 139 MEQ/L (136-145); TOTAL PROTEIN 8.6 GM/DL (6.4-8.2)
== END ==
LOC: M LABDRAWC 11:13
PROVIDERS: ATTEND Internal Medicine Cardiovascular Disease
DX: D64.9 Anemia, unspecified (principal); E11.9 Type 2 diabetes mellitus without complications; R53.83 Other fatigue

== ENCOUNTER → 2020-11-13 | Outpatient (REF) | payer OTHER ==
[2020-11-14 15:55] LABS: HEPATITIS B CORE ANTIBODY IGM NEGATIVE (NEGATIVE); HEPATITIS B SURFACE ANTIBODY NEGATIVE (POSITIVE)
[2020-11-14 15:56] LABS: HEPATITIS B SURFACE ANTIGEN POSITIVE (NEGATIVE)
== END ==
LOC: M LABDRAWC 14:25
PROVIDERS: ATTEND Physician Assistant
DX: R76.8 Other specified abnormal immunological findings in serum (principal)

== ENCOUNTER → 2020-11-27 | Outpatient (CLI) | payer OTHER ==
--- NOTE | 2020-11-28 02:52 | REP ---
INDICATION: PAIN COMPARISON: None. TECHNIQUE: AP and frog-lateral view of the left hip FINDINGS: Patient is status post pinning through the femoral head/neck. The joint space appears intact and normal. No periarticular calcifications or loose bodies. No significant degenerative changes. No acute fracture or dislocation. IMPRESSION: Essentially age-appropriate left hip radiographs. <Electronically signed by Aleks Bautista > 11/28/20 [id number]
--- NOTE | 2020-11-28 03:04 | REP ---
INDICATION: PAIN. COMPARISON: None. TECHNIQUE: AP, lateral, tunnel and sunrise views of the right knee FINDINGS: Mild tricompartmental osteoarthritic degenerative changes are appreciated. Findings include subtle increased sclerosis along the tibial plateau and patella along with associated joint space narrowing and very subtle early marginal spurring. Lateral view suggests small suprapatellar effusion. No acute fracture or dislocation. IMPRESSION: Mild tricompartmental osteoarthritic degenerative changes. <Electronically signed by Aleks Bautista > 11/28/20 [id number]
== END ==
LOC: M SOG 15:40
PROVIDERS: ATTEND Orthopaedic Surgery Sports Medicine
DX: M25.552 Pain in left hip (principal)

== ENCOUNTER → 2021-03-01 | Outpatient (CLI) | payer OTHER | LOC: M RAD 13:16 | PROVIDERS: ATTEND Orthopaedic Surgery Sports Medicine | DX: M25.552 Pain in left hip (principal); M87.052 Idiopathic aseptic necrosis of left femur ==

== ENCOUNTER → 2021-03-25 | Outpatient (CLI) | payer OTHER ==
--- NOTE | 2021-03-25 17:43 | REP ---
INDICATION: ANKYLOSIS, RT KNEE. COMPARISON: Radiographs 11/27/2020. TECHNIQUE: Multiple sequences obtained in the axial, coronal and sagittal planes. FINDINGS: Menisci: There is a complex tear of the body and posterior horn of the medial meniscus. Lateral meniscus appears intact. Cruciate ligaments: Intact. Collateral ligaments: Intact. Extensor mechanism/patellar retinacula: Intact. Cartilage: There is moderately severe diffuse chondromalacia of the patella. There is a more mild degree of global chondromalacia throughout the medial and lateral compartments. Bone marrow: There is diffuse marrow edema throughout the patella. Joint fluid: There is a moderate joint effusion. There is moderate synovial thickening anteriorly. Popliteal region: No cyst. IMPRESSION: Complex tear body and posterior horn medial meniscus. Global chondromalacia, most significantly of the patella. There is diffuse marrow edema of the patella. There is a moderate joint effusion with anterior synovial thickening. <Electronically signed by Dameon Vincent > 03/25/21 [id number]
== END ==
LOC: M PLAIMG 15:22
PROVIDERS: ATTEND Orthopaedic Surgery Sports Medicine
DX: S83.231A Complex tear of medial meniscus, current injury, right knee, initial encounter (principal); M24.661 Ankylosis, right knee; X58.XXXA Exposure to other specified factors, initial encounter; Y92.9 Unspecified place or not applicable